=== PATIENT | female | born 1950 | race Two or more races ===

== ENCOUNTER 2021-05-17 10:17 | Emergency (ER) | payer OTHER ==
[~2021-05-17] VITALS: Ht 162.6 cm; Wt 74.8 kg
[2021-05-17] MEDS ORDERED: ESCITALOPRAM OX10 MG PO (10:32)
[2021-05-17] MEDS ORDERED: NIFEDIPINE ER60 M1 PO (10:32)
[2021-05-17] MEDS ORDERED: ATORVASTATIN CA10 MG PO (10:32)
[2021-05-17] MEDS ORDERED: CLONAZEPAM0.5 MG PO (10:32)
[2021-05-17] MEDS ORDERED: METOPROLOL SUCC50 MG PO (10:32)
== END 2021-05-17 13:02 | disposition home or self-care (01) ==
LOC: ER 10:17
DX: S16.1XXA Strain of muscle, fascia and tendon at neck level, initial encounter (principal); X50.9XXA Other and unspecified overexertion or strenuous movements or postures, initial encounter; Y93.89 Activity, other specified; Y92.89 Other specified places as the place of occurrence of the external cause; Y99.8 Other external cause status

== ENCOUNTER 2021-09-07 09:53 | Emergency (ER) | payer OTHER ==
[~2021-09-07] VITALS: Ht 165.1 cm; Wt 74.8 kg
[~2021-09-07 09:53] MED LIST: ATORVASTATIN CA10 MG PO; CLONAZEPAM0.5 MG PO; ESCITALOPRAM OX10 MG PO; METOPROLOL SUCC50 MG PO; NIFEDIPINE ER60 M1 PO
== END 2021-09-07 13:24 | disposition home or self-care (01) ==
LOC: ER 09:53
DX: B34.9 Viral infection, unspecified (principal); Z20.822 Contact with and (suspected) exposure to COVID-19

== ENCOUNTER 2021-09-07 13:15 | Outpatient (CLI) | payer OTHER | END 2021-09-07 14:10 | disposition home or self-care (01) | LOC: ASH CLINIC 13:15 | PROVIDERS: ATTEND General Practice | DX: Z23 Encounter for immunization (principal); U07.1 COVID-19 ==

== ENCOUNTER 2022-05-30 20:56 | Emergency (ER) | payer OTHER ==
[~2022-05-30] VITALS: Ht 170.2 cm; Wt 76.2 kg
== END 2022-05-30 22:11 | disposition home or self-care (01) ==
LOC: ER 20:56
DX: S00.83XA Contusion of other part of head, initial encounter (principal); S80.01XA Contusion of right knee, initial encounter; W18.39XA Other fall on same level, initial encounter; Y93.89 Activity, other specified; Y92.59 Other trade areas as the place of occurrence of the external cause; Y99.9 Unspecified external cause status; M54.2 Cervicalgia

== ENCOUNTER 2023-07-01 08:25 | Emergency (ER) | payer OTHER ==
[~2023-07-01] VITALS: Ht 162.6 cm; Wt 74.8 kg
[2023-07-01] MEDS ORDERED: DICLOFENAC SODI75 MG PO (17:14)
== END 2023-07-01 17:25 | disposition home or self-care (01) ==
LOC: ER 08:25
DX: S83.281A Other tear of lateral meniscus, current injury, right knee, initial encounter (principal); M25.561 Pain in right knee; M19.90 Unspecified osteoarthritis, unspecified site; M17.11 Unilateral primary osteoarthritis, right knee
CPT/HCPCS: 29505; 73725; 96372; 99284; J1885; J3490; 73221

== ENCOUNTER 2024-05-26 10:14 | Emergency (ER) | payer OTHER ==
[~2024-05-26] VITALS: Ht 165.1 cm; Wt 73.9 kg
[~2024-05-26 10:14] MED LIST changes: +DICLOFENAC SODI75 MG PO; +NIFEDIPINE20 MG
[2024-05-26] MEDS ORDERED: KETOROLAC TROMETHAMINE 60 MG VIAL IM ONE ×2 (11:45→11:48)
[2024-05-26] MEDS ORDERED: ORPHENADRINE CITRATE 30 MG/ML AMPUL IM ONE (11:45)
[2024-05-26] MEDS ORDERED: ORPHENADRINE CITRATE 30 MG/ML AMPUL ONE (11:49)
== END 2024-05-26 15:59 ==
LOC: ER 10:14
DX: M54.9 Dorsalgia, unspecified (principal); I10 Essential (primary) hypertension; I87.2 Venous insufficiency (chronic) (peripheral); M51.37 Other intervertebral disc degeneration, lumbosacral region
CPT/HCPCS: 72100; 96372; 99283; J1885; J2360

== ENCOUNTER 2024-11-05 11:41 | Emergency (ER) | payer OTHER ==
[~2024-11-05] VITALS: Ht 165.1 cm; Wt 72.6 kg
[2024-11-05] MEDS ORDERED: TRIAMCINOLONE ACETONIDE 40 MG/ML VIAL ONE (13:12)
[2024-11-05] MEDS ORDERED: KETOROLAC TROMETHAMINE 30 MG VIAL ONE (13:13)
[2024-11-05] MEDS ORDERED: ONDANSETRON HCL 2 MG/ML VIAL ONE (13:13)
[2024-11-05] MEDS ORDERED: TRIAMCINOLONE ACETONIDE 40 MG/ML VIAL IM ONE (13:15)
[2024-11-05] MEDS ORDERED: ONDANSETRON HCL 2 MG/ML VIAL IV ONE (13:15)
[2024-11-05] MEDS ORDERED: KETOROLAC TROMETHAMINE 30 MG VIAL IV ONE (13:15)
[2024-11-05 13:37] LABS: HEMATOCRIT 41.9 % (36.0-45.00); HEMOGLOBIN 14.2 g/dL (12.0-15.00); MEAN CELL VOLUME 94.7 fL (80.00-100.00); MEAN CORPUSCULAR HEMOGLOBIN 32.1 pg (27.00-32.0); MEAN CORPUSCULAR HGB CONC 33.9 g/dl (32.0-36.0); PLATELET COUNT 253 K/uL (150-450); RED BLOOD COUNT 4.43 M/uL (4.00-6.00); RED CELL DISTRIBUTION WIDTH 13.7 % (11.5-14.5)
[2024-11-05 14:44] LABS: ALBUMIN 3.7 gm/dL (3.4-5.0); BILIRUBIN TOTAL 0.41 mg/dL (0.3-1.2); CALCIUM 9.4 mg/dL (8.5-10.1); CREATININE SERUM 0.82 mg/dL (0.55-1.02); GFR 68.53; POTASSIUM 4.61 mEq/L (3.5-5.1); TOTAL PROTEIN 7.7 gm/dL (6.4-8.2)
[2024-11-05] MEDS ORDERED: TRAMADOL HCL 50 MG TABLET PO ONE (15:00)
== END 2024-11-05 15:06 | disposition home or self-care (01) ==
LOC: ER 11:43
PROVIDERS: General Practice
DX: R10.31 Right lower quadrant pain (principal); M25.551 Pain in right hip; M54.89 Other dorsalgia; K57.90 Diverticulosis of intestine, part unspecified, without perforation or abscess without bleeding; Q63.2 Ectopic kidney; I70.8 Atherosclerosis of other arteries

== ENCOUNTER 2024-12-07 07:56 | Outpatient (CLI) | payer OTHER | END 2024-12-07 08:09 | disposition home or self-care (01) | LOC: TOM 07:56 | DX: R10.9 Unspecified abdominal pain (principal); Z71.1 Person with feared health complaint in whom no diagnosis is made | CPT/HCPCS: 71260; 74177; Q9965 ==